=== PATIENT | female | born 1950 | race Caucasian/White ===

== ENCOUNTER 2019-02-11 14:25 | Outpatient (CLI) | payer MEDICARE ==
--- NOTE | 2019-02-11 15:20 | ULT ---
US Thyroid STANDARD: 02/11/2019 12:00 AM CLINICAL INDICATION: Thyroid nodules. COMPARISON: None. FINDINGS: The right thyroid lobe measures 4.9 and the left thyroid lobe measures 4.3. Multiple nodules and cysts are seen in both thyroid lobes. The largest nodule in the right thyroid lobe is mixed solid/cystic and well-circumscribed. This nodul e is 1.4 cm in greatest dimension. No suspicious calcifications are seen within this nodule. The largest nodule in the left thyroid lobe measures 0.6 cm in greatest dimension and is well-circums cribed. No cervical lymphadenopathy is noted. IMPRESSION: Multiple thyroid nodules. The most suspicious nodule is the nodule in the right thyroid lobe. TIRADS category 3 ; a follow-up at one years, 3 years, and 5 years is recommended.
== END 2019-02-11 14:26 | disposition home or self-care (01) ==
LOC: BICULT 14:25
PROVIDERS: ATTEND Otolaryngology Plastic Surgery within the Head & Neck
DX: E04.2 Nontoxic multinodular goiter (principal)
CPT/HCPCS: 76536